=== PATIENT | male | born 1965 | race Caucasian/White ===

== ENCOUNTER 2022-04-21 16:35 | Inpatient (IN) | payer MEDICAID ==
[~2022-04-21] VITALS: Ht 175.3 cm; Wt 86.2 kg
[2022-04-21 19:58] LABS: BASOPHILS % (AUTO) 0.5 % (0.0-2.0); HEMATOCRIT 38 % (39-51); HEMOGLOBIN 12.1 g/dL (13.5-17.5); LYMPHOCYTES # (AUTO) 0.9 K/uL (0.8-4.8); LYMPHOCYTES % (AUTO) 20.4 % (20.0-44.0); MEAN CORPUSCULAR HGB CONC 32 g/dl (31.0-36.0); MEAN CORPUSCULAR VOLUME 79 fL (80-96); MONOCYTES # (AUTO) 0.5 K/uL (0.1-1.30); MONOCYTES % (AUTO) 11.6 % (2.0-12.0); NEUTROPHILS # (AUTO) 2.8 K/uL (1.8-8.9); NEUTROPHILS % (AUTO) 64.5 % (43.0-81.0); PLATELET COUNT (AUTO) 338 K/uL (150-450); RED BLOOD CELL COUNT(AUTO) 4.79 MIL/uL (4.5-6.0); WHITE BLOOD COUNT (AUTO) 4.3 K/uL (4.3-11.0)
[2022-04-21 20:09] LABS: CALCIUM, SERUM 8.2 mg/dL (8.5-10.1); CARBON DIOXIDE 27 mmol/L (21-32); CHLORIDE 104 mmol/L (98-107); CREATININE 1.1 mg/dL (0.6-1.3); GLUCOSE 99 mg/dL (74-106); POTASSIUM 3.9 mmol/L (3.5-5.1); SODIUM SERUM 135 mmol/L (136-145); UREA NITROGEN, BLOOD 15 mg/dL (7-18)
[2022-04-21] MEDS ORDERED: ASPIRIN 325 MG TABLET PO ONE (21:00)
[2022-04-21] MEDS ORDERED: ASPIRIN EC 325 MG TABLET.DR PO ONE (21:22)
[2022-04-22] MEDS ORDERED: MORPHINE SULFATE INJ 2 MG/ML DISP.SYRIN IV ONE
[2022-04-22] MEDS ORDERED: FUROSEMIDE 40 MG/4 ML VIAL IV ONE
[2022-04-22] MEDS ORDERED: FURO-145 PO (00:36)
--- NOTE | 2022-04-22 01:09 | NUR ---
COVID SWAB COLLECTED AND SENT TO LAB.
--- NOTE | 2022-04-22 01:10 | NUR ---
EPIC PAGED WILL CALL BACK
[2022-04-22] MEDS ORDERED: hydrALAZINE HCL IV 20 MG VIAL IV PRN (01:30)
[2022-04-22] MEDS ORDERED: ACETAMINOPHEN 325 MG TABLET PO PRN (01:30)
[2022-04-22] MEDS ORDERED: ONDANSETRON HCL/PF 4 MG/2 ML VIAL IVP PRN (01:30)
[2022-04-22] MEDS ORDERED: FUROSEMIDE 40 MG/4 ML VIAL ONE (01:55)
--- NOTE | 2022-04-22 03:14 | NUR ---
REPORT GIVEN TO NEVIN ON THIRD FLOOR
--- NOTE | 2022-04-22 03:27 | NUR ---
patient transferred vss
[2022-04-22 03:30] VITALS: BP 174/111
--- NOTE | 2022-04-22 03:30 | NUR ---
KITCHEN HAND ADMITTING NOTES PT RECEIVED IN UNIT @ 0330 VIA [place] BY ER STAFF. 190 LBS, VS: 174/111 BP, 86 PULSE, 99% SPO2, 98.3 TEMP, 18 RR. A/O X4, COOPERATIVE, ABLE TO MAKE NEEDS KNOWN. HARD OF HEARING. ABLE TO RESPOND TO ALL ADMISSION QUESTIONS. EYES PERRLA. ON RA WITH NO C/O SOB OR LABORED BREATHING. LUNGS AUSCULTATED, NOTED WITH DIMINISHED SOUNDS ON B/L UPPER LOBES AND WHEEZING ON B/L LOWER LOBES. HEART SOUNDS REGULAR. DENIES CARDIAC DISTRESS AT THIS TIME. SLIP FEEDER SET UP, READING SR WITH PAC'S, HR 98. BOWEL SOUNDS ACTIVE ON ALL QUADRANTS. PT URINATED 350 ML OF CLEAR, YELLOW URINE USING URINAL DURING ASSESSMENT. SKIN ISSUES NOTED AND DOCUMENTED IN PT CHART: MEDIAL SCAR ON UPPER TORSO; DRYNESS, SCABBING ON B/L LOWER EXTREMITIES. ASKED FOR PAIN MEDICATION DUE TO 9/10 PAIN LEVEL. ADMINISTERED AND TOLERATED WELL. PT FAMILIARIZED WITH UNIT AND SHOWN HOW TO USE THE CALL LIGHT. PT PROVIDED REQUESTED SNACKS OF CRACKERS AND APPLE JUICE. SAFETY PRECAUTIONS IMPLEMENTED: BED LOCKED AND IN LOW POSITION; SIDE RAILS UP X3; CALL LIGHT AND TRAY TABLE WITH REACH. WILL CONTINUE TO MONITOR AND ASSIST. Addendum: 04/22/22 at 0817 by TONY LIZAMA RN IV ACCESS RFA #20G SL FLUSHED, PATENT AND INTACT.
[2022-04-22 04:00] VITALS: BP 168/104
[2022-04-22] MEDS: MORPHINE SULFATE INJ 2 MG/ML DISP.SYRIN IV PRN ×3 (04:25→17:32)
[2022-04-22 06:14] VITALS: BP 174/111
--- NOTE | 2022-04-22 07:30 | NUR ---
DOWEL SETTING MACHINE OPERATOR CLOSING NOTES PT IN BED, SLEEPING AT THIS TIME. A/O X4, COOPERATIVE, ABLE TO MAKE NEEDS KNOWN. HARD OF HEARING. STABLE ON RA WITH NO C/O SOB OR LABORED BREATHING. DENIES CARDIAC DISTRESS AT THIS TIME. GRAIN I FARMWORKER SET UP, READING SR, HR 78. IV ACCESS RFA #20G SL, PATENT AND INTACT. ALL CARE PROVIDED AND ADMINISTERED MEDICATIONS TOLERATED WELL. SAFETY PRECAUTIONS MAINTAINED: BED LOCKED AND IN LOW POSITION; SIDE RAILS UP X3; CALL LIGHT AND TRAY TABLE WITH REACH. WILL ENDORSE ANN TO FELLED SEAM OPERATOR CHAINSTITCH NURSE.
--- NOTE | 2022-04-22 07:32 | NUR ---
ADJUNCT HISTORY INSTRUCTOR OPENING NOTES: RECEIVED PT AWAKE, A/O X4, VERBALIZES NEEDS, L SIDED HARD OF HEARING. ON RA, TOLERATING WELL, NO S/S OF SOB, DENIES PAIN AND NO ACUTE DISTRESS AT THIS TIME. IV ACCESS R FA #20, SL PATENT AND INTACT. SAFETY MEASURES IN PLACE, CALL LIGHT, TABLE AND URINAL WITHIN REACH, WILL CONT WITH PLAN OF CARE DURING SHIFT. Addendum: 04/22/22 at 0736 by FABRICE HUGHES RN ON TELE MONITORING READING SR - 73.
[2022-04-22 08:00] VITALS: BP 132/94
[2022-04-22 08:34] LABS: ALBUMIN 2.5 g/dL (3.4-5.0); BILIRUBIN,TOTAL 0.5 mg/dL (0.2-1.0); CALCIUM, SERUM 8.5 mg/dL (8.5-10.1); CREATININE 1.2 mg/dL (0.6-1.3); POTASSIUM 3.7 mmol/L (3.5-5.1); TOTAL PROTEIN, SERUM 8.9 g/dL (6.4-8.2)
[2022-04-22 08:46] LABS: THYROID STIMULATING HORMONE 2.504 uIU/mL (0.358-3.74)
[2022-04-22] MEDS: NITROGLYCERIN 30 GM TUBE TP SCH ×3 (09:00→20:06)
[2022-04-22] MEDS: hydrALAZINE HCL 50 MG TABLET PO SCH ×3 (09:01→16:32)
[2022-04-22] MEDS: ATORVASTATIN 10 MG TABLET PO SCH (09:01)
[2022-04-22] MEDS: ASPIRIN 81 MG TAB.CHEW PO SCH (09:01)
[2022-04-22] MEDS: FUROSEMIDE 40 MG/4 ML VIAL IV SCH (09:02)
[2022-04-22] MEDS ORDERED: IOHEXOL-350 100 ML VIAL IV ONE (10:33)
[2022-04-22] MEDS ORDERED: NITROGLYCERIN 0.4 MG/TAB BOTTLE ONE (10:33)
[2022-04-22] MEDS ORDERED: CT SWABBABLE VALVE TRANS SET 1 EA INFUS.SET MC ONE (10:34)
[2022-04-22] MEDS ORDERED: METOPROLOL TARTRATE INJ 5 MG/5 ML AMPUL ONE (10:34)
[2022-04-22] MEDS ORDERED: IV NS 0.9% 250 ML IV ONE (10:34)
--- NOTE | 2022-04-22 11:32 | NUR ---
Received patient in CT Room for CTCA. Procedure explained to patient/ Verbalized understanding including necessary instructions pre, during and post procedure. Procedure started at 1105 with no untoward reactions noted. See CTA intervention. Procedure completed at 1115. No untoward reactions noted. Patient denies any pain or discomfort with stable vital signs.
[2022-04-22 12:00] VITALS: BP 122/91
[2022-04-22] MEDS: METOPROLOL TARTRATE 50 MG TABLET PO SCH ×2 (12:45→17:22)
--- NOTE | 2022-04-22 13:45 | NUR ---
Casing Grader Consult SW received a consult request for homelessness. Pt. is a 56 year old male who was admitted for chest pain. SW met with pt. at bedside. Pt had difficulty hearing and understanding SW. Pt. is awake, alert and oriented x4, pt. was unkempt and was shirtless during assessment. Pt stated he has been living on the streets for a few years. Pt. provided emergency contact information for his niece Stephan ([phone]) and his brother Jw ([phone]). Per pt. report, pt. is receiving zenia fresh. 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 is independent with his ADLs. Pt denied hx of psychiatric dx, denied hallucinations. SW assessed for suicidal and homicidal ideation in which pt. denied plans, means, or intent. DC Plan: When asked about pt.'s plan after discharge, pt. stated he would go back to the streets. [facility] offered pt. shelters in which pt appeared agreeable. [facility] offered pt. homeless resources and directions to [facility] [address] [place] [address] in which pt. accepted them. [facility] discussed with nurse Jennifer who was agreeable. Nurse to provide pt. with TAP card at the time of discharge. Year-round shelters: [place] [address] [place], [place] [phone] ; [facility] [address] [place] [address]; [facility] [id number] [facility]. [facility] [address] Hygiene: [facility]: [address] [place] ; [facility] [address] [facility] ; [facility] [address] . Food Resources: [place] [facility] at [facility]- [address]; Meet Each Need with Dignity ([facility]) [address] [place]; [facility] [address] [facility]; [facility] [address] [place] [facility] [place]. Mental Health resources provided: [facility] [address] [place], [place] [address] ; [facility] [address] [facility] [address], [place], [place] [phone] ; [facility] [address] [place], [place] [phone] ; [facility] [address] [place], [place] [phone] Healthcare Clinics: [facility] [address] [facility], [address] [place]. [place] ; [facility] [address] [facility] [address] [place] [address]; [facility] [address] [facility] [place] [address] 278) [phone] Counseling--Outpatient [facility] [address] [facility], [place] [address] (Specializes in in-depth psychotherapy for emotional distress: anxiety, depression, interpersonal conflicts, life transitions, childhood abuse) [facility] [address] [place] [address] (Assist with solving problem marital difficulties, separation & divorce, aging parents, & grief, chronic & terminal illness) [facility] [address] [place] [address] (Deal with loss & grief, anxiety, marital difficulties) Homebound/Mental Health Services [address] [facility], [address] [place], [place] [phone] (Provide in-home mental services to people who are incapable of leaving their homes) [facility] [address] [facility]. [place], [place] [phone] [facility] [address] [facility] [place], [place] [address] PSYCHIATRIC OUTPATIENT SERVICES [facility] Partial Hospitalization and Intensive Outpatient Program (Managed Care and [place] Only)[address] [facility] [phone] [facility] Partial Hospitalization and Outpatient [id number] [place], [place] [phone] RUTH LAUGHLIN [facility] [place] [address] [place], [place] [phone] [facility] Partial Hospitalization and Outpatient [id number] Ruth kimmie, [phone] Substance Abuse resources provided included: [facility] Substance Abuse Self-Helpline ([facility]) ; [facility] [address] [facility]. [place] [address] ; [facility] [address] [facility] [address] ; [facility] [address] [facility] [facility] [address] ; [facility] [address] [facility] [phone] ; [facility] Treatment Centers [address] [facility] [address] ; [facility] [address] [facility] [phone] ; [facility] Substance Abuse Helpline([facility] ; [facility] ; [facility] [place]; [facility]; [facility] [place]; [facility] Ruth Laughlin; [facility]; [facility]; [facility] [place]; [facility], [facility]. Edwin Willett; Alcoholics Anonymous [facility]; Nettie ; Marijuana Anonymous [facility]; Narcotics Anonymous www.na.org;
--- NOTE | 2022-04-22 18:44 | NUR ---
PLATINUM SMITH CLOSING NOTES: PT AWAKE, A/O X4, VERBALIZES NEEDS, L SIDED HARD OF HEARING. ON RA, TOLERATING WELL, NO S/S OF SOB AND ACUTE DISTRESS AT THIS TIME. DENIES CHEST PAIN AT THIS TIME. TELE MONITOR READS SR, HR- 77. IV ACCESS R FA #20, SL AND R FA #18, SL, BOTH PATENT, INTACT AND FLUSHING WELL. KEPT CLEAN, DRY AND COMFORTABLE. NEEDS MET. SAFETY MEASURES IN PLACE, CALL LIGHT, TABLE AND URINAL WITHIN REACH, WILL ENDORSE TO PM SHIFT.
--- NOTE | 2022-04-22 19:40 | NUR ---
KARATE INSTRUCTOR OPENING NOTES: PT AWAKE, A/O X4, VERBALIZES NEEDS, L SIDED HARD OF HEARING. ON RA, TOLERATING WELL, NO S/S OF SOB AND ACUTE DISTRESS AT THIS TIME. DENIES CHEST PAIN AT THIS TIME. TELE MONITOR READS SR, HR . IV ACCESS R FA #20, SL AND R FA #18, SL, BOTH PATENT, INTACT AND FLUSHING WELL. KEPT CLEAN, DRY AND COMFORTABLE. NEEDS MET. SAFETY MEASURES IN PLACE, CALL LIGHT, TABLE AND URINAL WITHIN REACH.
[2022-04-22 20:00] VITALS: BP 155/96
[2022-04-23] VITALS: BP 137/82
[2022-04-23] MEDS: MORPHINE SULFATE INJ 2 MG/ML DISP.SYRIN IV PRN ×3 (00:09→13:10)
--- NOTE | 2022-04-23 00:09 | NUR ---
RN NOTE PRN MORPHINE GIVEN FOR 8/10 PAIN TOLERATED WELL.
[2022-04-23] MEDS: METOPROLOL TARTRATE 50 MG TABLET PO SCH ×2 (00:41→05:47)
[2022-04-23 04:00] VITALS: BP 142/95
[2022-04-23 06:03] LABS: BASOPHILS # (AUTO) 0.1 K/uL (0.0-0.2); BASOPHILS % (AUTO) 2.5 % (0.0-2.0); EOSINOPHILS % (AUTO) 4.8 % (0.0-6.0); HEMATOCRIT 37 % (39-51); LYMPHOCYTES # (AUTO) 0.8 K/uL (0.8-4.8); LYMPHOCYTES % (AUTO) 17.3 % (20.0-44.0); MEAN CORPUSCULAR HGB CONC 32 g/dl (31.0-36.0); MEAN CORPUSCULAR VOLUME 79 fL (80-96); MONOCYTES # (AUTO) 0.6 K/uL (0.1-1.30); MONOCYTES % (AUTO) 11.7 % (2.0-12.0); NEUTROPHILS # (AUTO) 3.1 K/uL (1.8-8.9); NEUTROPHILS % (AUTO) 63.7 % (43.0-81.0); PLATELET COUNT (AUTO) 344 K/uL (150-450); RED BLOOD CELL COUNT(AUTO) 4.71 MIL/uL (4.5-6.0); WHITE BLOOD COUNT (AUTO) 4.8 K/uL (4.3-11.0)
--- NOTE | 2022-04-23 06:58 | NUR ---
GAS APPLIANCE INSTALLER CLOSING NOTES: PT AWAKE, A/O X4, VERBALIZES NEEDS, L SIDED HARD OF HEARING. ON RA, TOLERATING WELL, NO S/S OF SOB AND ACUTE DISTRESS AT THIS TIME. DENIES CHEST PAIN AT THIS TIME. TELE MONITOR READS SR, HR . IV ACCESS R FA #20, SL AND R FA #18, SL, BOTH PATENT, INTACT AND FLUSHING WELL. KEPT CLEAN, DRY AND COMFORTABLE. NEEDS MET. SAFETY MEASURES IN PLACE, CALL LIGHT, TABLE AND URINAL WITHIN REACH. WILL ENDORSE CARE TO DAY SHIFT NURSE.
[2022-04-23 07:14] LABS: ALBUMIN 2.3 g/dL (3.4-5.0); BILIRUBIN,TOTAL 0.4 mg/dL (0.2-1.0); CALCIUM, SERUM 8.3 mg/dL (8.5-10.1); CREATININE 1.1 mg/dL (0.6-1.3); MAGNESIUM 1.8 mg/dL (1.8-2.4); PHOSPHORUS 3.7 mg/dL (2.5-4.9); POTASSIUM 3.7 mmol/L (3.5-5.1); TOTAL PROTEIN, SERUM 8.3 g/dL (6.4-8.2)
--- NOTE | 2022-04-23 07:20 | NUR ---
MS RN RECEIVED ON BED, AWAKE,ALERT, ORIENTED X4,NOT IN ANY FORM OF DISTRESS, RESPIRATIONS EVEN AND UNLABORED,NO SOB NOTED, LUNGS ARE CLEAR,ABDOMENS OFT,NPOSITIVE BOWEL SOUNDS,DENIES PAIN AT THIS TIME, ALL NEEDS ATTENDED.
[2022-04-23 08:00] VITALS: BP 179/71
[2022-04-23] MEDS: FUROSEMIDE 40 MG/4 ML VIAL IV SCH (08:32)
[2022-04-23] MEDS: ATORVASTATIN 10 MG TABLET PO SCH (08:32)
[2022-04-23] MEDS: ASPIRIN 81 MG TAB.CHEW PO SCH (08:32)
[2022-04-23] MEDS: hydrALAZINE HCL 50 MG TABLET PO SCH ×3 (08:33→13:10)
[2022-04-23] MEDS: NITROGLYCERIN 30 GM TUBE TP SCH (08:44)
[2022-04-23] MEDS ORDERED: FUROSEMIDE 40 MG TABLET PO SCH (09:00)
[2022-04-23] MEDS ORDERED: ISOSORBIDE DINITRATE (20MG) 20 MG TABLET PO SCH (09:00)
[2022-04-23] MEDS ORDERED: SPIRONOLACTONE 25 MG TABLET PO SCH (09:00)
[2022-04-23] MEDS ORDERED: CARVEDILOL 12.5 MG TABLET PO SCH (09:00)
[2022-04-23] MEDS ORDERED: FURO40TA5 PO (09:06)
[2022-04-23] MEDS ORDERED: ASPI-1169 PO (09:06)
[2022-04-23] MEDS ORDERED: CARV12.52 PO (09:06)
[2022-04-23] MEDS ORDERED: HYDR-4077 PO (09:06)
[2022-04-23] MEDS ORDERED: ISOS20TA8 PO (09:06)
[2022-04-23] MEDS ORDERED: ATOR10TA PO (09:06)
[2022-04-23] MEDS ORDERED: SPIR25TA6 PO (09:06)
--- NOTE | 2022-04-23 09:11 | NUR ---
MS REYES BREAKFAST SERVED,DUE MEDS GIVEN,TOLERATED WELL.
--- NOTE | 2022-04-23 10:00 | NUR ---
ms rn was seen by dr. eleuterio sutton/ order to go home today.
[2022-04-23 12:00] VITALS: BP 137/79
[2022-04-23 13:10] VITALS: BP 137/79
--- NOTE | 2022-04-23 14:00 | NUR ---
ms burn nurse instructions given and understood, patient went home w/ prescription,all needs attended.
[2022-04-24 15:06] LABS: *SPE A/G RATIO 0.5 (0.7-1.7); *SPE ALPHA-1-GLOBULIN 0.3 g/dL (0.0-0.4); *SPE ALPHA-2-GLOBULIN 0.9 g/dL (0.4-1.0); *SPE M-SPIKE Not Observed g/dL (Not Observed)
== END 2022-04-23 14:10 | disposition home or self-care (01) | DRG 198 ==
LOC: ER 16:39 → TELE 04-22 02:44
PROVIDERS: ADMIT Internal Medicine; ATTEND Internal Medicine
DX: I20.0 Unstable angina (principal); D63.8 Anemia in other chronic diseases classified elsewhere; L97.519 Non-pressure chronic ulcer of other part of right foot with unspecified severity; E87.1 Hypo-osmolality and hyponatremia; I10 Essential (primary) hypertension; Z59.00 Homelessness unspecified; Z83.3 Family history of diabetes mellitus
CPT/HCPCS: 36415; 71045-TC; 75574; 80048-TC; 80053-TC; 80061-TC; 83605-TC; 83735-TC; 83880; 84100-TC; 84155; 84165; 84439-TC; 84443-TC; 84484-TC; 85025-TC; 85652-TC; 87081-TC; 93307-TC; C9803; G0378; J0360; J1940; J2270; J3490; J7050; Q9967